=== PATIENT | female | born 1950 | race Caucasian/White ===

== ENCOUNTER 2021-07-23 00:05 | Inpatient (IN) | payer BC ==
[~2021-07-23] VITALS: Ht 320 cm; Wt 61.7 kg
[~2021-07-23 00:05] MED LIST: ALLERGY RELIEF; DIGOXIN; WARFARIN; [UNRECOGNIZED DRUG - REMARK]
[2021-07-23] MEDS ORDERED: ASPIRIN 81MG TABLET PO ONE (00:15)
[2021-07-23 01:18] LABS: BASOPHILS % 0.8 % (0.0-2.0); HEMATOCRIT. 33.5 % (36.0-48.0); HEMOGLOBIN. 11.1 g/dL (12.0-16.0); LYMPHOCYTES % 19.5 % (20.0-50.0); MEAN CORPUSCULAR HEMOGLOBIN 30.2 pg (28.0-32.0); MEAN CORPUSCULAR VOLUME 91.2 fL (81.0-99.0); MEAN PLATELET VOLUME 9.7 fl (7.4-10.4); MONOCYTES % 8.3 % (2.0-8.0); NEUTROPHILS % 69.4 % (40.0-76.0); PLATELET 166 x1000/uL (130-400); RED BLOOD CELL COUNT 3.67 mill/uL (4.2-5.4); RED CELL DISTRIBUTION WIDTH 15.9 % (11.6-14.6)
[2021-07-23 01:23] LABS: CHLORIDE 108 mEq/L (98-107)
[2021-07-23 01:27] LABS: INR 2.1; PARTIAL THROMBOPLASTIN TIME 36.5 sec (23.4-31.0); PROTHROMBIN TIME 21.6 sec (9.6-11.0)
[2021-07-23] MEDS ORDERED: FUROSEMIDE 40MG/4ML VIAL IV NR (07:45)
[2021-07-23 09:30] VITALS: BP 123/55
[2021-07-23 10:00] VITALS: BP 123/55
[2021-07-23] MEDS ORDERED: SPIR25TA6 MT (11:07)
[2021-07-23] MEDS ORDERED: CALC-1042 PO (11:07)
[2021-07-23] MEDS ORDERED: VITA250012 MT (11:07)
[2021-07-23] MEDS ORDERED: VITA-328 PO (11:07)
[2021-07-23] MEDS ORDERED: WARF-67 MT (11:07)
[2021-07-23] MEDS ORDERED: ALLO100T MT (11:07)
[2021-07-23] MEDS ORDERED: ASCO-339 MT (11:07)
[2021-07-23] MEDS ORDERED: CARV6.2548 PO (11:07)
[2021-07-23 12:00] VITALS: BP 122/54
[2021-07-23] MEDS ORDERED: DIGO125T80 MT (13:24)
[2021-07-23] MEDS ORDERED: IPRATROPIUM/ALBUTEROL 0.5-3(2.5)MG/3ML NEB HHN PRN (13:30)
[2021-07-23] MEDS ORDERED: BISACODYL 10MG SUPP PR PRN (13:30)
[2021-07-23] MEDS ORDERED: ACETAMINOPHEN 650MG SUPP PR PRN (13:30)
[2021-07-23] MEDS ORDERED: ACETAMINOPHEN 325MG TABLET PO PRN (13:30)
[2021-07-23] MEDS ORDERED: HYDROCODONE/ACETAMINOPHEN 5/325MG TABLET PO PRN (13:30)
[2021-07-23] MEDS ORDERED: HYDRALAZINE 20MG/ML VIAL IV PRN (13:30)
[2021-07-23 16:00] VITALS: BP_SYST 114; BP_SYST 117; BP_SYST 125; BP_DIAS 67; BP_DIAS 78; BP_DIAS 85
[2021-07-23] MEDS ORDERED: ONDANSETRON HCL 4MG/2ML INJ IV PRN (16:00)
[2021-07-23] MEDS: SPIRONOLACTONE 25MG TABLET PO SCH (17:16)
[2021-07-23] MEDS ORDERED: DIGOXIN 500MCG/2ML AMP IV SCH (18:00)
[2021-07-23] MEDS ORDERED: WARFARIN SODIUM 2MG TABLET PO SCH (18:00)
[2021-07-23 19:19] LABS: BG BASE EXCESS -1.3 mmol/L (-2.0-2.0); BG CARBOXYHEMOGLOBIN 0.5 % (0.5-1.5); BG DEOXYHEMOGLOBIN 2.4 % (0.0-5.0); BG FRACTION INSPIRED OXYGEN 21; BG HCO3 ACT 21.6 mmol/L (22.0-26.0); BG METHEMOGLOBIN 0.4 % (0.0-1.5); BG OXYGEN SATURATION 97.6 % (92.0-98.5); BG OXYHEMOGLOBIN 96.7 % (94.0-97.0); BG PCO2 30.6 mmHg (35.0-45.0); BG PH 7.466 (7.350-7.450); BG PO2 98.4 mmHg (75.0-100.0); BG SAMPLE SITE LEFT BRACHIAL; BG TOTAL HEMOGLOBIN 12.4 g/dL (12.0-18.0); BG VENT MODE ROOM AIR
[2021-07-23 20:00] VITALS: BP 131/73
[2021-07-23] MEDS: CARVEDILOL 3.125 MG TABLET PO SCH (20:59)
[2021-07-24] VITALS: BP_SYST 120; BP_SYST 121; BP_SYST 126; BP_DIAS 70; BP_DIAS 72
[2021-07-24 02:22] LABS: CLARITY URINE CLEAR (CLEAR); COLOR URINE YELLOW (YELLOW); KETONES URINE NEGATIVE (NEGATIVE); LEUKOCYTE ESTERASE URINE TRACE (NEGATIVE); NITRITE URINE NEGATIVE (NEGATIVE); OCCULT BLOOD URINE NEGATIVE (NEGATIVE); PH URINE 6.5 (4.5-8.0); PROTEIN URINE TRACE (NEGATIVE); SPECIFIC GRAVITY URINE 1.019 (1.005-1.030); UROBILINOGEN URINE 0.2 E.U./dL (0.2-1.0)
[2021-07-24 04:00] VITALS: BP 108/52
[2021-07-24] MEDS ORDERED: LEVOTHYROXINE SODIUM 25MCG TABLET PO SCH (07:10)
[2021-07-24 08:00] VITALS: BP_SYST 106; BP_SYST 111; BP_SYST 114; BP_DIAS 44; BP_DIAS 57; BP_DIAS 58
[2021-07-24] MEDS: CARVEDILOL 3.125 MG TABLET PO SCH (08:50)
[2021-07-24] MEDS ORDERED: ASPIRIN 81MG TABLET PO SCH (09:00)
[2021-07-24] MEDS ORDERED: APIXABAN 5 MG TABLET PO SCH (09:00)
[2021-07-24] MEDS ORDERED: FUROSEMIDE 40MG/4ML VIAL IVP SCH ×2 (09:00)
[2021-07-24] MEDS: SPIRONOLACTONE 25MG TABLET PO SCH (09:03)
[2021-07-24 09:14] LABS: BASOPHILS % 0.9 % (0.0-2.0); EOSINOPHILS % 2.9 % (0.0-5.0); HEMATOCRIT. 30.8 % (36.0-48.0); HEMOGLOBIN. 10.3 g/dL (12.0-16.0); LYMPHOCYTES % 18.5 % (20.0-50.0); MEAN CORPUSCULAR HEMOGLOBIN 30.4 pg (28.0-32.0); MEAN CORPUSCULAR VOLUME 91.1 fL (81.0-99.0); MEAN PLATELET VOLUME 9.8 fl (7.4-10.4); MONOCYTES % 7.5 % (2.0-8.0); NEUTROPHILS % 70.2 % (40.0-76.0); PLATELET 136 x1000/uL (130-400); RED BLOOD CELL COUNT 3.38 mill/uL (4.2-5.4); RED CELL DISTRIBUTION WIDTH 16.2 % (11.6-14.6)
[2021-07-24 09:15] LABS: INR 2.2; PROTHROMBIN TIME 22.1 sec (9.6-11.0)
[2021-07-24 12:00] VITALS: BP 105/56
[2021-07-24] MEDS ORDERED: LEVO25TA2 MT (13:44)
[2021-07-24] MEDS ORDERED: LEVO500T89 MT (13:44)
[2021-07-24] MEDS ORDERED: ALBU90AE INH (13:44)
[2021-07-24] MEDS ORDERED: FURO-151 MT (13:44)
[2021-07-24] MEDS ORDERED: LEVOFLOXACIN 500MG TABLET PO SCH (13:45)
[2021-07-24 15:51] VITALS: BP 105/56
[2021-07-24 16:00] VITALS: BP 107/72
[2021-07-25] MEDS ORDERED: LEVOFLOXACIN 250MG TABLET PO SCH (11:00)
== END 2021-07-24 18:55 | disposition home or self-care (01) | DRG 308 ==
LOC: ER 00:05 → 8WST 04:25 → ENRESERV 08:32
PROVIDERS: ADMIT Internal Medicine; ATTEND Internal Medicine
DX: I48.20 Chronic atrial fibrillation, unspecified (principal); I50.43 Acute on chronic combined systolic (congestive) and diastolic (congestive) heart failure; N39.0 Urinary tract infection, site not specified; D68.9 Coagulation defect, unspecified; J91.8 Pleural effusion in other conditions classified elsewhere; R07.89 Other chest pain; R06.03 Acute respiratory distress; D64.9 Anemia, unspecified; E03.9 Hypothyroidism, unspecified; R73.9 Hyperglycemia, unspecified; F41.9 Anxiety disorder, unspecified; I51.7 Cardiomegaly; Z79.01 Long term (current) use of anticoagulants; Z79.899 Other long term (current) drug therapy; Z20.822 Contact with and (suspected) exposure to COVID-19
CPT/HCPCS: 36415; 36600; 71045; 78582; 80048; 80053; 81003; 82375; 82728; 82805; 83036; 83735; 83880; 84443; 84481; 84484; 85025; 87077; 87186; 87426; 87493; 93005; 93306; 93970; 93971; 97161; 99285; A9558; C1893; J1160; J1940

== ENCOUNTER 2022-07-02 17:54 | Inpatient (IN) | payer BC, MEDICARE ==
[~2022-07-02] VITALS: Ht 160 cm; Wt 56.7 kg
[~2022-07-02 17:54] MED LIST changes: +ALBU90AE INH; -ALLERGY RELIEF; +ALLO100T MT; +ASCO-339 MT; +CALC-1042 PO; +CARV6.2548 PO; +DIGO125T80 PO; +FURO-151 MT; +LEVO-65 MT; +LEVO25TA2 MT; +SPIR25TA6 PO; +VITA-328 PO; +VITA250012 PO; +WARF-67 MT; -[UNRECOGNIZED DRUG - REMARK]
[2022-07-02 22:26] LABS: BASOPHILS % 0.3 % (0.0-2.0); HEMATOCRIT. 39.6 % (36.0-48.0); HEMOGLOBIN. 13.1 g/dL (12.0-16.0); LYMPHOCYTES % 9.2 % (20.0-50.0); MEAN CORPUSCULAR HEMOGLOBIN 30.5 pg (28.0-32.0); MEAN CORPUSCULAR VOLUME 92.1 fL (81.0-99.0); MEAN PLATELET VOLUME 10.8 fl (7.4-10.4); MONOCYTES % 8.2 % (2.0-8.0); NEUTROPHILS % 82.3 % (40.0-76.0); PLATELET 129 x1000/uL (130-400); RED CELL DISTRIBUTION WIDTH 15.1 % (11.6-14.6)
[2022-07-02 22:38] LABS: CHLORIDE 107 mEq/L (98-107)
[2022-07-02] MEDS ORDERED: FUROSEMIDE 100MG/10ML VIAL IVP NR (23:15)
[2022-07-02 23:49] LABS: INR 1.1; PROTHROMBIN TIME 11.6 sec (9.6-11.0)
[2022-07-03 01:42] LABS: CLARITY URINE CLEAR (CLEAR); COLOR URINE YELLOW (YELLOW); KETONES URINE TRACE (NEGATIVE); LEUKOCYTE ESTERASE URINE 1+ (NEGATIVE); NITRITE URINE POSITIVE (NEGATIVE); OCCULT BLOOD URINE 2+ (NEGATIVE); PH URINE 5.5 (4.5-8.0); PROTEIN URINE 2+ (NEGATIVE); SPECIFIC GRAVITY URINE 1.013 (1.005-1.030); UROBILINOGEN URINE 0.2 E.U./dL (0.2-1.0)
[2022-07-03] MEDS ORDERED: ACETAMINOPHEN 325MG TABLET PO PRN (10:15)
[2022-07-03] MEDS ORDERED: CEFTRIAXONE 1 G PREMIX 50 ML IV SCH (10:15)
[2022-07-03] MEDS ORDERED: ONDANSETRON HCL 4MG/2ML INJ IV PRN (10:15)
[2022-07-03 10:30] VITALS: BP 137/68
[2022-07-03] MEDS: APIXABAN 5 MG TABLET PO SCH ×2 (11:42→18:14)
[2022-07-03] MEDS: FUROSEMIDE 40MG/4ML VIAL IVP SCH (11:42)
[2022-07-03 12:00] VITALS: BP 112/58
[2022-07-03] MEDS ORDERED: CEFTRIAXONE 1,000 MG in DEXTROSE 5% WATER 50 ML IV NR (12:30)
[2022-07-03] MEDS: LOSARTAN POTASSIUM 25 MG TABLET PO SCH (14:34)
[2022-07-03 16:00] VITALS: BP 125/62
[2022-07-03 20:00] VITALS: BP 136/82
[2022-07-03] MEDS: CARVEDILOL 3.125 MG TABLET PO SCH (20:24)
[2022-07-04] VITALS: BP 121/70
[2022-07-04] MEDS ORDERED: SODIUM POLYSTYRENE SULFONATE 15 G/60 ML BOT PO NR (01:30)
[2022-07-04] MEDS: PROMETHAZINE/DEXTROMETHORPHAN 6.25-15MG/5ML BOTTLE 120ML PO PRN ×3 (01:58→17:50)
[2022-07-04 04:00] VITALS: BP 136/57
[2022-07-04 06:43] LABS: BASOPHILS % 0.2 % (0.0-2.0); HEMATOCRIT. 35.5 % (36.0-48.0); LYMPHOCYTES % 9.9 % (20.0-50.0); MEAN CORPUSCULAR HEMOGLOBIN 30.8 pg (28.0-32.0); MEAN CORPUSCULAR VOLUME 91.5 fL (81.0-99.0); MEAN PLATELET VOLUME 10.4 fl (7.4-10.4); MONOCYTES % 11.4 % (2.0-8.0); NEUTROPHILS % 78.5 % (40.0-76.0); PLATELET 112 x1000/uL (130-400); RED BLOOD CELL COUNT 3.88 mill/uL (4.2-5.4); RED CELL DISTRIBUTION WIDTH 14.7 % (11.6-14.6)
[2022-07-04 08:00] VITALS: BP 112/71
[2022-07-04] MEDS: FUROSEMIDE 40MG/4ML VIAL IVP SCH (09:03)
[2022-07-04] MEDS: CARVEDILOL 3.125 MG TABLET PO SCH (09:04)
[2022-07-04] MEDS: LOSARTAN POTASSIUM 25 MG TABLET PO SCH (09:04)
[2022-07-04] MEDS: APIXABAN 5 MG TABLET PO SCH ×2 (09:04→17:03)
[2022-07-04] MEDS: CEFTRIAXONE 1,000 MG in DEXTROSE 5% WATER 50 ML IV SCH (09:05)
[2022-07-04] MEDS ORDERED: NON FORMULARY PATIENT HOME MED XX SCH (11:00)
[2022-07-04 11:53] VITALS: BP 146/77
[2022-07-04] MEDS: SACUBITRIL/VALSARTAN 24MG/26MG TABLET PO SCH ×2 (13:27→21:03)
[2022-07-04 15:51] VITALS: BP 130/85
[2022-07-04] MEDS: DIGOXIN 125MCG TABLET PO SCH (17:03)
[2022-07-04 20:00] VITALS: BP 129/89
[2022-07-04] MEDS: CARVEDILOL 12.5MG TABLET PO SCH (21:03)
[2022-07-05] VITALS: BP 127/64
[2022-07-05 04:00] VITALS: BP 111/72
[2022-07-05 06:44] LABS: BASOPHILS % 0.3 % (0.0-2.0); HEMOGLOBIN. 10.9 g/dL (12.0-16.0); LYMPHOCYTES % 11.4 % (20.0-50.0); MEAN CORPUSCULAR VOLUME 91.2 fL (81.0-99.0); MEAN PLATELET VOLUME 10.3 fl (7.4-10.4); MONOCYTES % 11.6 % (2.0-8.0); NEUTROPHILS % 76.7 % (40.0-76.0); PLATELET 97 x1000/uL (130-400); RED BLOOD CELL COUNT 3.51 mill/uL (4.2-5.4); RED CELL DISTRIBUTION WIDTH 14.5 % (11.6-14.6)
[2022-07-05 08:00] VITALS: BP_SYST 103; BP_SYST 110; BP_DIAS 70; BP_DIAS 73
[2022-07-05] MEDS: APIXABAN 5 MG TABLET PO SCH ×2 (08:20→18:03)
[2022-07-05] MEDS: SACUBITRIL/VALSARTAN 24MG/26MG TABLET PO SCH ×2 (08:21→18:03)
[2022-07-05] MEDS: CARVEDILOL 12.5MG TABLET PO SCH ×2 (08:22→20:30)
[2022-07-05] MEDS: CEFTRIAXONE 1,000 MG in DEXTROSE 5% WATER 50 ML IV SCH (08:38)
[2022-07-05] MEDS: FUROSEMIDE 40MG/4ML VIAL IVP SCH ×2 (08:38→16:36)
[2022-07-05] MEDS ORDERED: POTASSIUM CHLORIDE 20MEQ TABLET SR PO SCH (09:30)
[2022-07-05 12:00] VITALS: BP 102/46
[2022-07-05 16:00] VITALS: BP 110/60
[2022-07-05] MEDS: DIGOXIN 125MCG TABLET PO SCH (18:06)
[2022-07-05] MEDS ORDERED: APIX5TAB PO (18:43)
[2022-07-05] MEDS ORDERED: SACU1TAB PO (18:43)
[2022-07-05] MEDS ORDERED: CALC-1017 PO (18:43)
[2022-07-05] MEDS ORDERED: ASCO-386 PO (18:43)
[2022-07-05 20:00] VITALS: BP 107/59
[2022-07-05] MEDS: PROMETHAZINE/DEXTROMETHORPHAN 6.25-15MG/5ML BOTTLE 120ML PO PRN (20:30)
[2022-07-06] VITALS: BP 107/67
[2022-07-06 04:00] VITALS: BP 118/70
[2022-07-06 07:55] LABS: CHLORIDE 105 mEq/L (98-107)
[2022-07-06 07:59] LABS: BASOPHILS % 0.1 % (0.0-2.0); EOSINOPHILS % 0.7 % (0.0-5.0); HEMATOCRIT. 33.8 % (36.0-48.0); HEMOGLOBIN. 11.2 g/dL (12.0-16.0); LYMPHOCYTES % 15.9 % (20.0-50.0); MEAN CORPUSCULAR HEMOGLOBIN 30.8 pg (28.0-32.0); MEAN CORPUSCULAR VOLUME 93.1 fL (81.0-99.0); MEAN PLATELET VOLUME 10.4 fl (7.4-10.4); MONOCYTES % 14.6 % (2.0-8.0); NEUTROPHILS % 68.7 % (40.0-76.0); PLATELET 112 x1000/uL (130-400); RED BLOOD CELL COUNT 3.63 mill/uL (4.2-5.4); RED CELL DISTRIBUTION WIDTH 14.6 % (11.6-14.6)
[2022-07-06 08:00] VITALS: BP 106/54
[2022-07-06] MEDS: CARVEDILOL 12.5MG TABLET PO SCH (08:53)
[2022-07-06] MEDS ORDERED: POTASSIUM CHLORIDE 20MEQ TABLET SR PO SCH (09:00)
[2022-07-06] MEDS: CEFTRIAXONE 1,000 MG in DEXTROSE 5% WATER 50 ML IV SCH (09:24)
[2022-07-06] MEDS: FUROSEMIDE 40MG/4ML VIAL IVP SCH (09:25)
[2022-07-06] MEDS: APIXABAN 5 MG TABLET PO SCH (09:25)
[2022-07-06] MEDS: SACUBITRIL/VALSARTAN 24MG/26MG TABLET PO SCH (09:25)
[2022-07-06] MEDS: PROMETHAZINE/DEXTROMETHORPHAN 6.25-15MG/5ML BOTTLE 120ML PO PRN (09:26)
[2022-07-06] MEDS ORDERED: POTASSIUM CHLORIDE 20MEQ TABLET SR PO NR (11:30)
[2022-07-06 12:00] VITALS: BP 115/43
[2022-07-06 12:29] VITALS: BP 115/43
== END 2022-07-06 14:30 | disposition home or self-care (01) | DRG 291 ==
LOC: ER 17:54 → EDBEDREQ 23:16 → EDBEDREQTM 07-03 00:19 → EDBEDREQDT 07-03 00:19 → EDBEDREQ 07-03 00:19 → MICUSO 07-03 01:09 → 7EST 07-03 10:58
PROVIDERS: ADMIT Internal Medicine; ATTEND Internal Medicine
DX: I11.0 Hypertensive heart disease with heart failure (principal); I50.23 Acute on chronic systolic (congestive) heart failure; J18.9 Pneumonia, unspecified organism; N39.0 Urinary tract infection, site not specified; I48.20 Chronic atrial fibrillation, unspecified; I27.29 Other secondary pulmonary hypertension; Z20.822 Contact with and (suspected) exposure to COVID-19; I27.81 Cor pulmonale (chronic); I42.0 Dilated cardiomyopathy; E87.5 Hyperkalemia; E03.9 Hypothyroidism, unspecified; I37.1 Nonrheumatic pulmonary valve insufficiency; Z79.899 Other long term (current) drug therapy; Z91.14 Patient's other noncompliance with medication regimen; Z86.73 Personal history of transient ischemic attack (TIA), and cerebral infarction without residual deficits; Z79.01 Long term (current) use of anticoagulants
CPT/HCPCS: 36415; 71045; 80048; 80053; 80061; 81003; 83735; 83880; 84132; 84443; 84484; 85025; 87426; 87804; 93005; 93306; 97162; 99285; J0696; J1940; J7060

== ENCOUNTER 2024-05-10 07:32 | Emergency (ER) | payer MEDICARE, OTHER ==
[~2024-05-10] VITALS: Ht 162.6 cm; Wt 64.0 kg
[~2024-05-10 07:32] MED LIST changes: +APIX5TAB PO; -ASCO-339 MT; +ASCO-386 PO; +CALC-1017 PO; -CALC-1042 PO; -DIGOXIN; -FURO-151 MT; -LEVO-65 MT; +SACU1TAB PO; -WARF-67 MT; -WARFARIN
[2024-05-10 07:37] VITALS: O2SAT 98
[2024-05-10 08:17] LABS: HEMATOCRIT. 33.8 % (36.0-48.0); HEMOGLOBIN. 11.3 g/dL (12.0-16.0); MEAN CORPUSCULAR HEMOGLOBIN 31.5 pg (28.0-32.0); MEAN CORPUSCULAR HGB CONC 33.4 g/dL (31.0-37.0); MEAN CORPUSCULAR VOLUME 94.3 fL (81.0-99.0); MEAN PLATELET VOLUME 9.7 fl (7.4-10.4); PLATELET 96 x1000/uL (130-400); RED BLOOD CELL COUNT 3.58 mill/uL (4.2-5.4)
[2024-05-10 08:21] LABS: DIFFERENTIAL COMMENT 1
[2024-05-10 08:29] LABS: CHLORIDE 109 mEq/L (98-107); POTASSIUM 3.8 mEq/L (3.5-5.1); SODIUM 141 mEq/L (136-145)
[2024-05-10 08:30] LABS: CALCIUM 9.7 mg/dL (8.7-10.4); CARBON DIOXIDE 24 mEq/L (21-32)
[2024-05-10 08:35] LABS: CREATININE 1.2 mg/dL (0.6-1.0); GLUCOSE 136 mg/dL (70-105); UREA NITROGEN BLOOD 21 mg/dL (9-23)
[2024-05-10 08:37] LABS: ALANINE AMINOTRANSFERASE 22 IU/L (10-49); ALBUMIN 4.3 g/dL (3.2-4.8); ASPARTATE AMINOTRANSFERASE 25 IU/L (<34); BILIRUBIN TOTAL 1.1 mg/dL (0.1-1.0)
[2024-05-10 08:38] LABS: PROTEIN TOTAL 7.5 g/dL (6.0-8.3)
[2024-05-10 09:00] LABS: PLATELET ESTIMATE DECREASED
[2024-05-10 10:02] VITALS: BP 180/99; PULSE 98; RESP 18; TEMP 37.33632; O2SAT 98
== END 2024-05-10 09:29 | disposition home or self-care (01) ==
LOC: ER 07:32
DX: B34.9 Viral infection, unspecified (principal); I11.0 Hypertensive heart disease with heart failure; I50.9 Heart failure, unspecified; Z79.899 Other long term (current) drug therapy; Z86.73 Personal history of transient ischemic attack (TIA), and cerebral infarction without residual deficits; Z86.59 Personal history of other mental and behavioral disorders
CPT/HCPCS: 36415; 71045; 80053; 85025; 99284